=== PATIENT | male | born 1960 | race African-American/Black ===

== ENCOUNTER 2020-07-24 15:46 | Emergency (ER) | payer OTHER ==
[~2020-07-24] VITALS: Ht 182.9 cm; Wt 92.2 kg
[2020-07-24] MEDS ORDERED: LIDOCAINE 1% PF 2 ML VIAL. INJ ONE (16:15)
[2020-07-24] MEDS ORDERED: DIPH,PERTUSS(ACELL),TET VAC/PF 0.5 ML SYRINGE. VAX IM ONE (17:00)
[2020-07-24] MEDS ORDERED: CEPH500C PO (18:34)
--- NOTE | 2020-07-24 18:34 | ED.ADGEN ---
Past Medical History Past Medical History: Diabetes-Type II, High Cholesterol, Hypertension Past Surgical History: No Surgical History Smoking Status: Former Smoker Alcohol Use: None General Adult EDM: Chief Complaint: LACERATION/AVULSION HPI: HPI: Patient is a 60 year old 60-year-old male who presents the emergency department with complaints of a laceration to his left index finger. Patient states he was trying to take the blades out of his electric knife in order to clean it when he accidentally cut his finger. He denies any decreased sensation, decreased range of motion, or pain at this time. Patient is unsure when his last tetanus shot was. Review of Systems: Review of Systems: Complete ROS is negative unless otherwise noted in HPI. Current Medications: Current Medications Medications (Trade) Dose Ordered Sig/Thad Start Time Stop Time Status Last Admin Dose Admin Diphtheria/ Tetanus/Acell Pertussis (ADACEL TDap SYRINGE) 0.5 ml ONCE ONCE 07/24/20 17:00 07/24/20 17:01 DC 07/24/20 17:22 0.5 ML Lidocaine HCl (Xylocaine-Mpf 1% 2ml Vial) 6 ml 1X ONCE 07/24/20 16:15 07/24/20 16:22 DC 07/24/20 17:21 6 ML Allergies: Allergies: Allergies Coded Allergies Type Severity Reaction Last Updated Verified No Known Drug Allergies 07/24/20 No Physical Exam: PE: See Above Constitutional: Well developed, well nourished, no acute distress, non-toxic appearance. [] HENT: Normocephalic, atraumatic, bilateral external ears normal, nose normal. [] Eyes: PERRLA, EOMI, conjunctiva normal, no discharge. [] Neck: Normal range of motion, no stridor. [] Cardiovascular:Heart rate regular rhythm Lungs & Thorax: Respirations even and unlabored, no retractions, no respiratory distress Skin: Warm, dry, no erythema, no rash; 2.5 cm laceration noted to the volar aspect of the left index finger between the DIP and the PIP, no visible foreign body, bleeding controlled by pressure held by patient.. [] Extremities: Left index finger: Full extension, full flexion, normal sensation, no cyanosis, ROM intact, no edema. [] Neurologic: Alert and oriented X 3, no focal deficits noted. [] Psychologic: Affect normal, judgement normal, mood normal. [] Current Patient Data: Vital Signs: Vital Signs Date Time Temp Pulse Resp B/P (MAP) Pulse Ox O2 Delivery O2 Flow Rate FiO2 07/24/20 18:40 85 19 136/87 (103) 96 07/24/20 16:10 98.4 Room Air 98.4 EKG: EKG: [] Heart Score: Risk Factors: Risk Factors: DM, Current or recent (<one month) smoker, HTN, HLP, family history of CAD, obesity. Risk Scores: Score 0 - 3: 2.5% MACE over next 6 weeks - Discharge Home Score 4 - 6: 20.3% MACE over next 6 weeks - Admit for Clinical Observation Score 7 - 10: 72.7% MACE over next 6 weeks - Early Invasive Strategies Radiology/Procedures: Radiology/Procedures: Laceration Repair by me: Anesthesia: 1% lidocaine locally Location: Volar aspect of the second digit of the left hand between the PIP and the DIP Tendon/Joint/Nerves: No injury Foreign body: None detected after copious irrigation and exploration with surgical scrub and NS Technique: 6 simple Interrupted Sutures with 4-0 Ethilon Complexity: No subcutaneous sutures/mucosal repair/edge excision Post Closure Length: 2.5 cm Patient's bleeding was easily controlled in the department and there is no indication of anemia. No evidence of compartment syndrome, neurologic injury, vascular injury, open joint, tendon laceration, or foreign body. Patient is appropriate for outpatient follow up. [] Course & Med Decision Making: Course & Med Decision Making Pertinent Labs and Imaging studies reviewed. (See chart for details) [] Dragon Disclaimer: Dragon Disclaimer: This electronic medical record was generated, in whole or in part, using a voice recognition dictation system. Departure Departure Impression: Primary Impression: Laceration of left index finger w/o foreign body w/o damage to nail Additional Impression: Need for Tdap vaccination Disposition: 01 DC HOME SELF CARE/HOMELESS Condition: STABLE Referrals: LA WYATT MD (PCP) Patient Instructions: Laceration Care, Adult, [id number], VIS, Tetanus, Diphtheria (Td); Tetanus, Diphtheria, Pertussis (Tdap) - [facility] [place] Additional Instructions: Fill the prescription and use it as directed. Keep the area clean and dry. You may take Tylenol or ibuprofen as needed for pain. Keep the dressing that was placed today on for 24 hours then change the dressing twice a day and apply antibiotic ointment to the area. Wear the aluminum finger splint until the sutures have been removed. Follow-up with your primary care doctor, or return to the emergency room in 10-14 days to have the sutures removed, sooner if you d evelop signs of infection including: redness, warmth, drainage, or a fever. Scripts Cephalexin (CEPHALEXIN) 500 Mg Capsule 1 CAP PO QID for 7 Days, #28 CAP 0 Refills Prov: MANI FINN APRN 07/24/20 Splinting Splinting : Location: Left index finger Pre-Made Type: metal (Aluminum finger splint) Pre-Proc Neuro Vasc Exam: normal Post-Proc Neuro Vasc Exam: normal, unchanged from pre-exam Problem Qualifiers Primary Impression: Laceration of left index finger w/o foreign body w/o damage to nail Encounter type: initial encounter Qualified Codes: S61.211A - Laceration without foreign body of left index finger without damage to nail, initial encounter MANI FINN APRN Jul 24, 2020 18:34
[2020-07-24 18:40] VITALS: BP 136/87
== END 2020-07-24 18:47 | disposition home or self-care (01) ==
LOC: ER 15:46
DX: S61.211A Laceration without foreign body of left index finger without damage to nail, initial encounter (principal); E11.9 Type 2 diabetes mellitus without complications; E78.00 Pure hypercholesterolemia, unspecified; I10 Essential (primary) hypertension; Z87.891 Personal history of nicotine dependence; W26.0XXA Contact with knife, initial encounter; Y93.89 Activity, other specified; Y92.89 Other specified places as the place of occurrence of the external cause; Y99.8 Other external cause status
CPT/HCPCS: 12001; 90471; 90715; 99283; J3490

== ENCOUNTER 2022-01-12 03:29 | Emergency (ER) | payer OTHER ==
[~2022-01-12] VITALS: Ht 180.3 cm; Wt 91.8 kg
[~2022-01-12 03:29] MED LIST: CEPH500C PO
[2022-01-12 05:25] LABS: BACTERIA,URINE 0 /HPF (0-FEW); WBC,URINE 0 /HPF (0-4)
[2022-01-12 05:46] VITALS: BP 144/79
== END 2022-01-12 05:46 | disposition home or self-care (01) ==
LOC: ER 03:29
DX: R30.0 Dysuria (principal)
CPT/HCPCS: 81001; 99283